=== PATIENT | female | born 1985 | race American Indian/Alaskan Native ===

== ENCOUNTER 2017-07-15 21:07 | Outpatient (CLI) | payer SELFPAY ==
[2017-07-15] MEDS ORDERED: LACTATED RINGERS 1,000 ML IV ONE (21:26)
[2017-07-15 23:06] LABS: Bilirubin,Urine NEG (Negative); Blood,Urine NEG (Negative); Ketones,Urine NEG (Negative); Leukocyte Esterase,Urine NEG (Negative); Nitrite,Urine NEG (Negative); Protein,Urine <15 mg/dL mg/dL (Negative); Urobilinogen,Urine < 2.0 mg/dL (<2.0)
[2017-07-15 23:47] VITALS: BP 147/94
[2017-07-16 00:01] LABS: Hematocrit 34.4 % (30.3-42.9); Hemoglobin 11.2 gm/dl (10.1-14.3); Mean Corpuscular HGB Conc 33 % (30-34); Mean Corpuscular Hemoglobin 29 pg (28-32); Mean Corpuscular Volume 88 fl (79-97); Platelet Count 178 K/mm3 (140-440); Red Blood Count 3.91 M/mm3 (3.65-5.03); Red Cell Distribution Width 14.7 % (13.2-15.2); White Blood Count 8.5 K/mm3 (4.5-11.0)
[2017-07-16 00:21] LABS: Alanine Aminotransferase 17 units/L (7-56)
[2017-07-16 00:58] LABS: Lactate Dehydrogenase 194 units/L (91-180); Uric Acid 4.8 mg/dL (3.5-7.6)
== END 2017-07-16 00:45 | disposition home or self-care (01) ==
LOC: TRG 21:07
PROVIDERS: ATTEND Obstetrics & Gynecology
DX: O47.03 False labor before 37 completed weeks of gestation, third trimester (principal); Z3A.33 33 weeks gestation of pregnancy
CPT/HCPCS: 36415; 81001; 82565; 83615; 84450; 84460; 84550; 85027; 96360; J7120